=== PATIENT | female | born 1945 | race Caucasian/White ===

== ENCOUNTER 2018-03-24 22:52 | Inpatient (IN) | payer OTHER ==
[~2018-03-24] VITALS: Ht 160 cm; Wt 74.7 kg
[2018-03-25] VITALS (9 sets, daily range): BP systolic 129–164; BP diastolic 62–71; PULSE 51–64; RESP 18–19; Ht 160 cm; Wt 74.7 kg
[2018-03-25] MEDS ORDERED: AMLO2.5T78 PO (06:18)
[2018-03-25] MEDS ORDERED: SERT50TA6 PO (06:18)
[2018-03-25] MEDS ORDERED: METF850T13 PO (06:18)
[2018-03-25] MEDS ORDERED: TIMO5DRO30 RIGHT EYE (06:18)
[2018-03-25] MEDS ORDERED: LOSA100T15 PO (06:18)
[2018-03-25] MEDS ORDERED: ESOM40CA PO (06:18)
[2018-03-25] MEDS ORDERED: NACL 0.9% 3 ML SYG IV SCH (07:00)
[2018-03-25] MEDS ORDERED: ONDANSETRON 4 MG INJ IV PRN (07:00)
[2018-03-25] MEDS ORDERED: ACETAMINOPHEN 325 MG TAB PO PRN (07:00)
--- NOTE | 2018-03-25 09:09 | HP ---
Date/Time of Note Date/Time of Note DATE: 03/25/18 TIME: 09:02 Assessment/Plan VTE Prophylaxis SCD applied (from Ns): No SCD contraindicated: low risk/ambulating Pharmacological prophylaxis: heparin Assessment/Plan Problems: (1) CVA (cerebral vascular accident) Status: Chronic Comment: Her history is different for us and it was for the transferring facility. However this is mandatory as of aggressive evaluation to make sure what were dealing with here. She will be having carotid duplex scanning, MRI scan of the brain, echocardiogram. Further evaluation based on this. Aggressive risk factor modification for blood pressure and cholesterol as well and antiplatelet therapy. Physical therapy will start working with the patient. Qualifiers: CVA mechanism: unspecified Qualified Codes: I63.9 - Cerebral infarction, unspecified (2) Glaucoma Status: Chronic Comment: Continue with the eyedrops. Qualifiers: Glaucoma type: unspecified Laterality: right Qualified Codes: H40.9 - Unspecified glaucoma (3) Left-sided weakness Status: Chronic Comment: As above for workup. (4) Diabetes mellitus type 2 in nonobese Status: Chronic Comment: Maintain diabetic therapy and a carbohydrate controlled diet and follow to see if we need to adjust medication (5) Hypertension, essential Status: Chronic Comment: Continue with angiotensin II receptor olga lidia therapy with calcium channel olga lidia. Based on echocardiogram may adjust medications over the beta- olga lidia from calcium channel olga lidia as indicated Result Diagram: 03/25/18 0659 03/25/18 0659 Results 24hrs Laboratory Tests Test 03/25/18 06:59 White Blood Count 6.7 Red Blood Count 4.16 L Hemoglobin 12.1 Hematocrit 36.5 L Mean Corpuscular Volume 87.7 Mean Corpuscular Hemoglobin 29.1 Mean Corpuscular Hemoglobin Concent 33.2 Red Cell Distribution Width 12.4 Platelet Count 278 Mean Platelet Volume 9.4 Immature Granulocytes % 0.100 Neutrophils % 54.0 Lymphocytes % 26.6 Monocytes % 10.2 Eosinophils % 7.6 H Basophils % 1.5 Nucleated Red Blood Cells % 0.0 Immature Granulocytes # 0.010 Neutrophils # 3.6 Lymphocytes # 1.8 Monocytes # 0.7 Eosinophils # 0.5 Basophils # 0.1 Nucleated Red Blood Cells # 0.0 Sodium Level 139 Potassium Level 4.3 Chloride Level 98 Carbon Dioxide Level 30 Anion Gap 11 Blood Urea Nitrogen 10 Creatinine 0.81 Est Glomerular Filtrat Rate mL/min Glucose Level 98 Hemoglobin A1c 5.7 Calcium Level 10.0 Magnesium Level 1.8 Total Bilirubin 0.2 Direct Bilirubin 0.00 Indirect Bilirubin 0.2 Aspartate Amino Transf (AST/SGOT) 21 Alanine Aminotransferase (ALT/SGPT) 18 Alkaline Phosphatase 89 Total Protein 7.4 Albumin 4.0 Globulin 3.40 H Albumin/Globulin Ratio 1.17 Triglycerides Level 135 Cholesterol Level 216 H LDL Cholesterol, Calculated 157 HDL Cholesterol 32 L Cholesterol/HDL Ratio 6.7 Thyroid Stimulating Hormone (TSH) 1.910 HPI/ROS Admit Date/Time Admit Date/Time Mar 25, 2018 at 05:50 Hx of Present Illness 72-year-old right-handed [place] female admitted on transfer from [facility] emergency room. She was born in [facility] and raised there and had lived in [place] for some years but was living improved for the last 5 years. She moved to [facility] in the last 8 months and has been living he . She is just set up with a new physician in the last 3 months. She reports a 2-year history of left-sided weakness with a loss of coordination and falls x8 times. Reports there is been no acute changes but she presented to the emergency room at [facility] for evaluation. The history they got was of a 2-day history she was transferred over for TIA. Note the patient reports her symptoms are not resolving in my history is obtained with the assistance of the patient's granddaughter car PANTOJA Constitutional: no complaints (Denies fevers chills or sweats) Eyes: no complaints (History of glaucoma) ENT: no complaints Respiratory: no complaints Cardiovascular: no complaints (Patient reports she had an episode of chest pain a year ago and was seen by hospital improvement was advised to get further testing which was never done. She is not ambulatory for any specific length and is not using stairs.) Gastrointestinal: no complaints Genitourinary: no complaints Musculoskeletal: back pain, neck pain Skin: no complaints Neurologic: focal-weakness (Left-sided weakness unchanged from time) Endocrine: no complaints Lymphatic: no complaints PMH/Family/Social Past Medical History Medical History: diabetes (Type II), high cholesterol, hypertension, other (C hronic tinnitus; glaucoma;) Medications Current Medications IV Flush (NS 3 ml) 3 ml PER PROTOCOL IV ; Start 03/25/18 at 07:00 Ondansetron HCl (Zofran Inj) 4 mg Q6H PRN IV NAUSEA AND/OR VOMITING; Start 03/25/18 at 07:00 Aspirin (Aspirin) 81 mg DAILY PO ; Start 03/25/18 at 09:00 Acetaminophen (Tylenol Tab) 650 mg Q6H PRN PO PAIN LEVEL 1-3 OR FEVER; Start 03/25/18 at 07:00 Diagnostic Test (Pha) (Accu-Chek) 1 ea 2 HOURS AFTER MEALS XX ; Start 03/25/18 at 09:55 Insulin Aspart (Novolog Insulin Pen) NOVOLOG *MILD* ALGORITHM WITH MEALS BEDTIME SC ; Start 03/25/18 at 11:50 Atorvastatin Calcium (Lipitor) 20 mg HS PO ; Start 03/25/18 at 21:00 Amlodipine Besylate (Norvasc) 5 mg DAILY PO ; Start 03/25/18 at 09:00; Status UNV Losartan Potassium (Cozaar) 100 mg DAILY PO ; Start 03/25/18 at 09:00; Status UNV Metformin HCl (Glucophage) 850 mg BID PO ; Start 03/25/18 at 09:00; Status UNV Sertraline HCl (Zoloft) 50 mg DAILY PO ; Start 03/25/18 at 09:00; Status UNV Timolol Maleate (Timoptic 0.5%) 1 drop BID RIGHT EYE ; Start 03/25/18 at 09:00; Status UNV Miscellaneous Information 40 mg DAILY PO ; Start 03/25/18 at 09:00; Status UNV Coded Allergies: No Known Allergy (Unverified , 03/25/18) Past Surgical History Past Surgical Hx: appendectomy, cholecystectomy, other (S post cataract surg jose manuel; status post umbilical hernia repair;) Family History Significant Family History: diabetes, hypertension Social History Born in [place] and raised there. She and her family had lived in [place] for 22 years but moved back to [place] in 2012. She moved to [facility] roughly 8 months ago. She lives with her daughter Alcohol Use: none Smoking Status: Never smoker Drug Use: none Exam/Review of Systems Vital Signs Vitals Vital Signs Date Temp Pulse Resp B/P (MAP) Pulse Ox O2 O2 Flow FiO2 Time Delivery Rate 03/25/18 55 08:01 03/25/18 98.2 18 141/64 98 Room Air 07:19 (89) Exam Constitutional: alert, oriented Psych: no complaints, nl mood/affect Head: normocephalic, atraumatic Eyes: nl conjunctiva, EOMI, nl lids, nl sclera, PERRL ENMT: nl external ears & nose, nl lips & teeth, nl nasal mucosa & septum, mucosa pink and moist Neck: supple, non-tender Respiratory: clear to auscultation, normal air movement Cardiovascular: regular rate and rhythm, nl pulses Gastrointestinal: soft, nl liver, spleen, non-tender Musculoskeletal: nl extremities to inspection, other (Not ambulating at this moment) Extremities: normal pulses Neurological: 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
[2018-03-25] MEDS: ACCU-CHEK XX SCH ×3 (09:55→20:08)
[2018-03-25] MEDS: TIMOLOL 0.5% 5 ML OPH RIGHT EYE SCH ×2 (10:46→20:13)
[2018-03-25] MEDS: SERTRALINE 50 MG TAB PO SCH (10:46)
[2018-03-25] MEDS: ASPIRIN 81 MG TAB PO SCH (10:46)
[2018-03-25] MEDS: LOSARTAN 50 MG TAB PO SCH (10:47)
[2018-03-25] MEDS: AMLODIPINE 5 MG TAB PO SCH (10:47)
[2018-03-25] MEDS ORDERED: GLUCOSE GEL 15 GRAM TUBE BUCCAL PRN (11:00)
[2018-03-25] MEDS ORDERED: GLUCAGON 1 MG INJ IM PRN (11:00)
[2018-03-25] MEDS ORDERED: DEXTROSE 50% 50 ML SYRINGE IV PRN ×2 (11:00)
[2018-03-25] MEDS ORDERED: GLUCOSE GEL 15 GRAM TUBE PO PRN ×2 (11:00)
[2018-03-25] MEDS: INSULIN ASPART [NOVOLOG] 3 ML PEN SC SCH ×3 (11:50→20:10)
[2018-03-25] MEDS: PANTOPRAZOLE (EC) 40 MG TAB PO SCH (12:05)
[2018-03-25] MEDS: metFORMIN 850 MG TAB PO SCH ×2 (12:05→20:12)
--- NOTE | 2018-03-25 17:08 | RADRPT ---
Echocardiogram Report Patient Name: ROSE FLANAGAN Gender: Female Date: 1945 Study Date: 25-Mar-2018 Word Processing Operator: Location: Ref. Physician: RAKEL DA SILVA Quality: Adequate Procedures: Transthoracic echocardiogram with complete 2D, M-Mode, and doppler examination. Indications: Transient Ischemic Attack. 2D/M Mode Doppler Measurement Value Normal Ranges Measurement Value Normal Ranges LVIDd 2D 4.2 3.5 - 5.6 cm AV Peak Patricio 1.6 m/sec LVIDs 2D 3.0 2.1 - 4.1 cm AV Peak PG 10.0 mmHg FS 2D 30.4 % LVOT Peak Patricio 1.1 m/sec LVPWd 2D 1.1 0.6 - 1.1 cm LVOT Peak PG 5.0 mmHg IVSd 2D 1.1 0.6 - 1.1 cm MV E Peak Patricio 0.8 m/sec IVS/LVPW 2D 1.0 MV A Peak Patricio 1.1 m/sec AoR Diam 2D 2.5 2.0 - 3.7 cm MV E/A 0.8 LA/Ao 2D 1 0 - 1 MV Decel Time 204 msec EDV 2D 76.2 cm3 MV E/A 0.8 ESV 2D 25.7 cm3 TV E Peak Patricio 0.5 m/sec LA Dimen 2D 2.7 2.3 - 4.0 cm TR Peak Patricio 2.4 m/sec TR Peak PG 22.0 mmHg Findings Left Ventricle: Normal left ventricular systolic function. Normal left ventricular cavity size. Normal left ventricular wall thickness. Ejection fraction is visually estimated at 55 %. Tissue Doppler/Mitral Doppler indices are consistent with impaired relaxation (Stage I diastolic dysfunction). Right Ventricle: Normal right ventricular size. Normal right ventricular systolic function. Left Atrium: There is moderate enlargement of left atrium. Right Atrium: There is mild enlargement of right atrium. Atrial Septum: Bubble study was performed with and with out valsalva indicating no evidence of intra atrial shunt. Mitral Valve: Mild mitral leaflet calcification. Aortic Valve: Normal appearance of the aortic valve. No aortic regurgitation. Tricuspid Valve: Normal appearance of the tricuspid valve. Estimated peak PA systolic pressure 22 mmHg. There is trace tricuspid regurgitation. Pericardium: Normal pericardium with no significant pericardial effusion. Aorta: Normal aortic root. IVC: The IVC is not well visualized. Conclusions Normal left ventricular systolic function. Normal left ventricular cavity size. Normal left ventricular wall thickness. Ejection fraction is visually estimated at 55 %. Tissue Doppler/Mitral Doppler indices are consistent with impaired relaxation (Stage I diastolic dysfunction). Bubble study was performed with and with out valsalva indicating no evidence of intra atrial shunt. No significant valvular stenosis or regurgitation seen. Estimated peak PA systolic pressure 22 mmHg. The IVC is not well visualized. Electronically Signed By: Aldo Ngo 25-Mar-2018 17:06:58 -0800 Patient Name: ROSE FLANAGAN Study Date: 25-Mar-2018 [id number]
[2018-03-25] MEDS: ATORVASTATIN 20 MG TAB PO SCH (20:12)
[2018-03-26] VITALS (12 sets, daily range): BP systolic 130–159; BP diastolic 62–74; PULSE 53–63; RESP 18
[2018-03-26] MEDS: PANTOPRAZOLE (EC) 40 MG TAB PO SCH (05:14)
[2018-03-26] MEDS: INSULIN ASPART [NOVOLOG] 3 ML PEN SC SCH ×4 (07:55→20:08)
[2018-03-26] MEDS: SERTRALINE 50 MG TAB PO SCH (08:14)
[2018-03-26] MEDS: ASPIRIN 81 MG TAB PO SCH (08:14)
[2018-03-26] MEDS: metFORMIN 850 MG TAB PO SCH ×2 (08:14→20:09)
[2018-03-26] MEDS: LOSARTAN 50 MG TAB PO SCH (08:15)
[2018-03-26] MEDS: AMLODIPINE 5 MG TAB PO SCH (08:15)
[2018-03-26] MEDS: TIMOLOL 0.5% 5 ML OPH RIGHT EYE SCH ×2 (08:19→20:09)
--- NOTE | 2018-03-26 08:43 | PN ---
Date/Time of Note Date/Time of Note DATE: 03/26/18 TIME: 08:37 Assessment/Plan VTE Prophylaxis Risk score (from Ns)>0 risk: 3 SCD applied (from Ns): Yes Pharmacological prophylaxis: heparin Lines/Catheters IV [facility] Peripheral IV Assessment/Plan Problems: (1) Left-sided weakness Status: Chronic Comment: Her workup fortunately is unrevealing. However given the additional details she gets with her history is possible she could have cervical spine stenosis. And then go ahead and do an imaging study of the cervical spine to verify or rule this out more specifically. The rest of the workup after this can be done as an outpatient. (2) CVA (cerebral vascular accident) Status: Chronic Comment: No evidence of acute CVA although she does have some remote small white matter disease. Qualifiers: CVA mechanism: unspecified Qualified Codes: I63.9 - Cerebral infarction, unspecified (3) Hypertension, essential Status: Chronic Comment: Adequate control (4) Grade I diastolic dysfunction Status: Chronic Comment: Controlled with control of blood pressure. Add low-dose beta-olga lidia (5) Benign meningioma of brain Status: Chronic Comment: Noted. (6) Diabetes mellitus type 2 in nonobese Status: Chronic Comment: Adequate glycemic control (7) Glaucoma Status: Chronic Comment: Maintain medication treatment Qualifiers: Glaucoma type: unspecified Laterality: right Qualified Codes: H40.9 - Unspecified glaucoma (8) Status post cholecystectomy Status: Chronic Comment: She has had her gallbladder out but she is complaining about some abdominal symptoms. To be thorough I will check an ultrasound to make sure that she does not have retained common bile duct stone. Result Diagram: 03/26/18 0532 03/26/18 0532 Results 24hrs Laboratory Tests Test 03/25/18 10:27 03/25/18 12:00 03/25/18 17:36 03/25/18 20:09 Rapid Plasma Reagin NONREACTIVE Hepatitis B Surface NEGATIVE Antigen Hepatitis C Antibody NEGATIVE Bedside Glucose 102 89 99 Test 03/26/18 05:32 03/26/18 08:12 White Blood Count 5.5 Red Blood Count 4.04 L Hemoglobin 11.7 L Hematocrit 34.9 L Mean Corpuscular 86.4 Volume Mean Corpuscular 29.0 Hemoglobin Mean Corpuscular 33.5 Hemoglobin Concent Red Cell 12.5 Distribution Width Platelet Count 278 Mean Platelet Volume 9.1 Immature 0.200 Granulocytes % Neutrophils % 46.7 Lymphocytes % 32.1 Monocytes % 11.0 Eosinophils % 8.4 H Basophils % 1.6 Nucleated Red Blood 0.0 Cells % Immature 0.010 Granulocytes # Neutrophils # 2.6 Lymphocytes # 1.8 Monocytes # 0.6 Eosinophils # 0.5 Basophils # 0.1 Nucleated Red Blood 0.0 Cells # Erythrocyte 40 H Sedimentation Rate Sodium Level 140 Potassium Level 4.2 Chloride Level 103 Carbon Dioxide Level 25 Anion Gap 12 Blood Urea Nitrogen 14 Creatinine 0.91 Est Glomerular Filtrat Rate mL/min Glucose Level 111 Calcium Level 9.8 Magnesium Level 1.8 Total Bilirubin 0.1 L Direct Bilirubin 0.00 Indirect Bilirubin 0.1 Aspartate Amino 19 Transf (AST/SGOT) Alanine 16 Aminotransferase (AL T/SGPT) Alkaline Phosphatase 89 Total Protein 7.0 Albumin 3.7 Globulin 3.30 H Albumin/Globulin 1.12 Ratio Bedside Glucose 104 Subjective 24 Hr Interval Summary Free Text/Dictation Patient reports some new issues for her. Specifically she is complaining about bilateral shoulder pain that she had not mentioned yesterday and some abdominal pain. These have been going on for quite some period of time. Constitutional: no complaints (No fevers chills or sweats) Respiratory: no complaints (Cough no wheezing no shortness of breath) Cardiovascular: no complaints (Chest pain no palpitations no PND no orthopnea) Gastrointestinal: pain (Vague epigastric pain without nausea vomiting diarrhea or constipation) Genitourinary: no complaints Musculoskeletal: back pain, neck pain Skin: no complaints Exam/Review of Systems Vital Signs Vitals Vital Signs Date Temp Pulse Resp B/P (MAP) Pulse Ox O2 O2 Flow FiO2 Time Delivery Rate 03/26/18 57 08:01 03/26/18 98.5 18 158/70 95 Room Air 07:30 (99) Intake and Output 03/25/18 03/25/18 03/26/18 1515:00 23:00 07:00 IntakeIntake Total 800 ml 450 ml BalanceBalance 800 ml 450 ml Exam Modestly challenging historian with a variable history who appears to be in minimal distress Constitutional: alert, oriented Head: normocephalic, atraumatic Neck: non-tender, other (Somewhat tender with range of motion but not meningismus) Respiratory: clear to auscultation, normal air movement Cardiovascular: regular rate and rhythm, nl pulses Gastrointestinal: soft, nl liver, spleen, non-tender Extremities: normal pulses 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, nl mental status, nl speech Medications Medications Current Medications IV Flush (NS 3 ml) 3 ml PER PROTOCOL IV ; Start 03/25/18 at 07:00 Ondansetron HCl (Zofran Inj) 4 mg Q6H PRN IV NAUSEA AND/OR VOMITING; Start 03/25/18 at 07:00 Aspirin (Aspirin) 81 mg DAILY PO Last administered on 03/26/18 08:14; Admin Dose 81 MG; Start 03/25/18 at 09:00 Acetaminophen (Tylenol Tab) 650 mg Q6H PRN PO PAIN LEVEL 1-3 OR FEVER Last administered on 03/26/18 08:14; Admin Dose 650 MG; Start 03/25/18 at 07:00 Diagnostic Test (Pha) (Accu-Chek) 1 ea 2 HOURS AFTER MEALS XX Last administered on 03/25/18 20:08; Admin Dose 1 EA; Start 03/25/18 at 09:55 Insulin Aspart (Novolog Insulin Pen) NOVOLOG *MILD* ALGORITHM WITH MEALS BEDTIME SC ; Start 03/25/18 at 11:50 Atorvastatin Calcium (Lipitor) 20 mg HS PO Last administered on 03/25/18 20:12; Admin Dose 20 MG; Start 03/25/18 at 21:00 Amlodipine Besylate (Norvasc) 5 mg DAILY PO Last administered on 03/26/18 08:15; Admin Dose 5 MG; Start 03/25/18 at 09:00 Losartan Potassium (Cozaar) 100 mg DAILY PO Last administered on 03/26/18 08:15; Admin Dose 100 MG; Start 03/25/18 at 09:00 Metformin HCl (Glucophage) 850 mg BID PO Last administered on 03/26/18 08:14; Admin Dose 850 MG; Start 03/25/18 at 09:00 Sertraline HCl (Zoloft) 50 mg DAILY PO Last administered on 03/26/18 08:14; Admin Dose 50 MG; Start 03/25/18 at 09:00 Timolol Maleate (Timoptic 0.5%) 1 drop BID RIGHT EYE Last administered on 03/26/18 08:19; Admin Dose 1 DROP; Start 03/25/18 at 09:00 Pantoprazole (Protonix Tab) 40 mg DAILY@06 PO Last administered on 03/26/18at 05 :14; Admin Dose 40 MG; Start 03/25/18 at 09:20 Miscellaneous Information 1 ea NOTE XX ; Start 03/25/18 at 11:00 Glucose (Glutose) 15 gm Q15M PRN PO DECREASED GLUCOSE; Start 03/25/18 at 11:00 Glucose (Glutose) 22.5 gm Q15M PRN PO DECREASED GLUCOSE; Start 03/25/18 at 11:00 Dextrose (D50w Syringe) 25 ml Q15M PRN IV DECREASED GLUCOSE; Start 03/25/18 at 11:00 Dextrose (D50w Syringe) 50 ml Q15M PRN IV DECREASED GLUCOSE; Start 03/25/18 at 11:00 Glucagon (Glucagen) 1 mg Q15M PRN IM DECREASED GLUCOSE; Start 03/25/18 at 11:00 Glucose (Glutose) 15 gm Q15M PRN BUCCAL DECREASED GLUCOSE; Start 03/25/18 at 11:00 MEKA DE LA O MD Mar 26, 2018 08:43
[2018-03-26] MEDS: METOPROLOL (XL) 25 MG TAB PO SCH (09:23)
[2018-03-26] MEDS: ACCU-CHEK XX SCH ×3 (09:55→20:08)
[2018-03-26] MEDS: CELECOXIB 100 MG CAP PO SCH ×2 (17:34→20:09)
[2018-03-26] MEDS: ATORVASTATIN 20 MG TAB PO SCH (20:09)
[2018-03-27] VITALS (11 sets, daily range): BP systolic 134–145; BP diastolic 65; PULSE 51–63; RESP 16–22
[2018-03-27] MEDS: PANTOPRAZOLE (EC) 40 MG TAB PO SCH (05:48)
[2018-03-27] MEDS: INSULIN ASPART [NOVOLOG] 3 ML PEN SC SCH ×4 (07:42→20:40)
[2018-03-27] MEDS: SERTRALINE 50 MG TAB PO SCH (08:51)
[2018-03-27] MEDS: ASPIRIN 81 MG TAB PO SCH (08:51)
[2018-03-27] MEDS: metFORMIN 850 MG TAB PO SCH ×2 (08:51→20:38)
[2018-03-27] MEDS: METOPROLOL (XL) 25 MG TAB PO SCH (08:53)
[2018-03-27] MEDS: AMLODIPINE 5 MG TAB PO SCH ×2 (08:53→20:39)
[2018-03-27] MEDS: TIMOLOL 0.5% 5 ML OPH RIGHT EYE SCH ×2 (08:54→20:40)
[2018-03-27] MEDS: CELECOXIB 100 MG CAP PO SCH ×2 (08:54→20:39)
[2018-03-27] MEDS: LOSARTAN 50 MG TAB PO SCH (08:54)
[2018-03-27] MEDS: ACCU-CHEK XX SCH ×3 (10:00→20:39)
--- NOTE | 2018-03-27 13:20 | PN ---
Date/Time of Note Date/Time of Note DATE: 03/27/18 TIME: 13:12 Assessment/Plan VTE Prophylaxis Risk score (from Ns)>0 risk: 3 SCD applied (from Ns): Yes Pharmacological prophylaxis: NA/contraindicated Pharm contraindication: low risk/ambulating Lines/Catheters IV Catheter Type (from Nrsg): Saline Lock Assessment/Plan Assessment/Plan 1. Left sided weakness, improved, unremarkable MRI brain, probably TIA, aspirin and statin 2. Both shoulder weakness, awaiting for cervical spinal MRI 3. HTN, increase norvasc 4. Small meningioma over the anterior left frontal convexity, 9 x 6 mm, follow up with PCP 5. Glaucoma, chronic, stable, eye drops Result Diagram: 03/26/18 0532 03/26/18 0532 Results 24hrs Laboratory Tests Test 03/26/18 17:33 03/26/18 20:08 03/27/18 07:41 03/27/18 09:58 Bedside Glucose 112 113 95 149 Test 03/27/18 11:32 Bedside Glucose 98 Subjective 24 Hr Interval Summary Free Text/Dictation shoulder weakness both side, mild. No weakness on lower extremities Exam/Review of Systems Vital Signs Vitals Vital Signs Date Temp Pulse Resp B/P (MAP) Pulse Ox O2 O2 Flow FiO2 Time Delivery Rate 03/27/18 98.5 51 17 134/65 95 Room Air 11:19 (88) Intake and Output 03/26/18 03/26/18 03/27/18 1515:00 23:00 07:00 IntakeIntake Total 500 ml BalanceBalance 500 ml Exam Constitutional: alert, oriented, well developed Head: normocephalic, atraumatic Eyes: nl conjunctiva, EOMI, nl lids, nl sclera, PERRL ENMT: nl external ears & nose, nl lips & teeth, nl nasal mucosa & septum Neck: supple, non-tender Respiratory: clear to auscultation, normal air movement; No congested cough, No crackles/rales, No diminished breath sounds, No intercostal retraction, No labored breathing, No respirations, No tactile fremitus, No wheezing, No other Cardiovascular: regular rate and rhythm, nl pulses; No bruits, No diastolic murmur, No edema, No gallop, No irregular rhythm, No jugular venous distention (JVD), No murmurs/extra sounds, No rub, No systolic murmur, No S3, No S4, No other Gastrointestinal: soft, nl liver, spleen, non-tender Musculoskeletal: nl extremities to inspection Extremities: normal pulses; No calf tenderness, No cyanosis, No clubbing, No edema, No pitting pedal edema, No palpable cord, No tenderness, No other 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, nl mental status, nl speech, nl strength Medications Medications Current Medications IV Flush (NS 3 ml) 3 ml PER PROTOCOL IV ; Start 03/25/18 at 07:00 Ondansetron HCl (Zofran Inj) 4 mg Q6H PRN IV NAUSEA AND/OR VOMITING; Start 03/25/18 at 07:00 Aspirin (Aspirin) 81 mg DAILY PO Last administered on 03/27/18 08:51; Admin Dose 81 MG; Start 03/25/18 at 09:00 Acetaminophen (Tylenol Tab) 650 mg Q6H PRN PO PAIN LEVEL 1-3 OR FEVER Last administered on 03/26/18 08:14; Admin Dose 650 MG; Start 03/25/18 at 07:00 Diagnostic Test (Pha) (Accu-Chek) 1 ea 2 HOURS AFTER MEALS XX Last administ ered on 03/27/18 10:00; Admin Dose 1 EA; Start 03/25/18 at 09:55 Insulin Aspart (Novolog Insulin Pen) NOVOLOG *MILD* ALGORITHM WITH MEALS BEDTIME SC ; Start 03/25/18 at 11:50 Atorvastatin Calcium (Lipitor) 20 mg HS PO Last administered on 03/26/18 20:09; Admin Dose 20 MG; Start 03/25/18 at 21:00 Amlodipine Besylate (Norvasc) 5 mg DAILY PO Last administered on 03/27/18 08:53; Admin Dose 5 MG; Start 03/25/18 at 09:00 Losartan Potassium (Cozaar) 100 mg DAILY PO Last administered on 03/27/18 08:54; Admin Dose 100 MG; Start 03/25/18 at 09:00 Metformin HCl (Glucophage) 850 mg BID PO Last administered on 03/27/18 08:51; Admin Dose 850 MG; Start 03/25/18 at 09:00 Sertraline HCl (Zoloft) 50 mg DAILY PO Last administered on 1/14/19at 08:51; Admin Dose 50 MG; Start 03/25/18 at 09:00 Timolol Maleate (Timoptic 0.5%) 1 drop BID RIGHT EYE Last administered on 03/27/18at 08:54; Admin Dose 1 DROP; Start 03/25/18 at 09:00 Pantoprazole (Protonix Tab) 40 mg DAILY@06 PO Last administered on 03/26/18at 05:14; Admin Dose 40 MG; Start 03/25/18 at 09:20 Miscellaneous Information 1 ea NOTE XX ; Start 03/25/18 at 11:00 Glucose (Glutose) 15 gm Q15M PRN PO DECREASED GLUCOSE; Start 03/25/18 at 11:00 Glucose (Glutose) 22.5 gm Q15M PRN PO DECREASED GLUCOSE; Start 03/25/18 at 11:00 Dextrose (D50w Syringe) 25 ml Q15M PRN IV DECREASED GLUCOSE; Start 03/25/18 at 11:00 Dextrose (D50w Syringe) 50 ml Q15M PRN IV DECREASED GLUCOSE; Start 03/25/18 at 11:00 Glucagon (Glucagen) 1 mg Q15M PRN IM DECREASED GLUCOSE; Start 03/25/18 at 11:00 Glucose (Glutose) 15 gm Q15M PRN BUCCAL DECREASED GLUCOSE; Start 03/25/18 at 11:00 Metoprolol Succinate (Toprol Xl) 25 mg DAILY PO Last administered on 03/26/18at 09:23; Admin Dose 25 MG; Start 03/26/18 at 09:00 Celecoxib (Celebrex) 100 mg BID PO Last administered on 03/27/18at 08:54; Admin Dose 100 MG; Start 03/26/18 at 13:00 CHEYENNE FOSS MD Mar 27, 2018 13:20
[2018-03-27] MEDS: ATORVASTATIN 20 MG TAB PO SCH (20:38)
[2018-03-28] VITALS (10 sets, daily range): BP systolic 117–158; BP diastolic 58–73; PULSE 48–61; RESP 16–22
[2018-03-28] MEDS: PANTOPRAZOLE (EC) 40 MG TAB PO SCH (06:52)
[2018-03-28] MEDS: INSULIN ASPART [NOVOLOG] 3 ML PEN SC SCH ×4 (07:56→20:33)
[2018-03-28] MEDS: CELECOXIB 100 MG CAP PO SCH ×2 (08:10→20:34)
[2018-03-28] MEDS: AMLODIPINE 5 MG TAB PO SCH ×2 (08:10→20:35)
[2018-03-28] MEDS: ASPIRIN 81 MG TAB PO SCH (08:10)
[2018-03-28] MEDS: LOSARTAN 50 MG TAB PO SCH (08:11)
[2018-03-28] MEDS: METOPROLOL (XL) 25 MG TAB PO SCH (08:11)
[2018-03-28] MEDS: SERTRALINE 50 MG TAB PO SCH (08:11)
[2018-03-28] MEDS: TIMOLOL 0.5% 5 ML OPH RIGHT EYE SCH ×2 (08:12→20:35)
[2018-03-28] MEDS: metFORMIN 850 MG TAB PO SCH ×2 (08:12→20:34)
[2018-03-28] MEDS: ACCU-CHEK XX SCH (10:50)
--- NOTE | 2018-03-28 15:33 | PN ---
Date/Time of Note Date/Time of Note DATE: 03/28/18 TIME: 15:29 Assessment/Plan VTE Prophylaxis Risk score (from Ns)>0 risk: 3 SCD applied (from Ns): Yes Pharmacological prophylaxis: NA/contraindicated Pharm contraindication: low risk/ambulating Lines/Catheters IV [facility]from [facility] Assessment/Plan Assessment/Plan 1. Severe cervical spinal disc disease, with shoulder weakness, neurosurgical consultation with Dr. Lockhart(sent text) 1. Left sided weakness, improved, unremarkable MRI brain, probably TIA, aspirin and statin 2. Both shoulder weakness, awaiting for cervical spinal MRI 3. HTN, increase norvasc 4. Small meningioma over the anterior left frontal convexity, 9 x 6 mm, follow up with PCP 5. Glaucoma, chronic, stable, eye drops Result Diagram: 03/26/18 0532 03/26/18 0532 Results 24hrs Laboratory Tests Test 03/27/18 17:20 03/27/18 20:35 03/28/18 07:52 03/28/18 10:20 Bedside Glucose 84 173 152 98 Test 03/28/18 12:08 Bedside Glucose 91 Subjective 24 Hr Interval Summary Free Text/Dictation less weakness on shoulders Exam/Review of Systems Vital Signs Vitals Vital Signs Date Temp Pulse Resp B/P (MAP) Pulse Ox O2 O2 Flow FiO2 Time Delivery Rate 03/28/18 98.0 55 21 117/58 96 Room Air 12:08 (77) Intake and Output 03/27/18 03/27/18 03/28/18 1515:00 23:00 07:00 IntakeIntake Total 500 ml 720 ml 500 ml BalanceBalance 500 ml 720 ml 500 ml Exam Constitutional: alert, oriented, well developed Psych: no complaints, nl mood/affect Head: normocephalic, atraumatic Eyes: nl conjunctiva, EOMI, nl lids, PERRL ENMT: nl external ears & nose, nl lips & teeth, nl nasal mucosa & septum Neck: supple, non-tender Respiratory: clear to auscultation, normal air movement; No congested cough, No crackles/rales, No diminished breath sounds, No intercostal retraction, No labored breathing, No respirations, No tactile fremitus, No wheezing, No other Cardiovascular: regular rate and rhythm, nl pulses; No bruits, No diastolic murmur, No edema, No gallop, No irregular rhythm, No jugular venous distention (JVD), No murmurs/extra sounds, No rub, No systolic murmur, No S3, No S4, No other Gastrointestinal: soft, nl liver, spleen, non-tender Musculoskeletal: nl extremities to inspection Extremities: normal pulses; No calf tenderness, No cyanosis, No clubbing, No edema, No pitting pedal edema, No palpable cord, No tenderness, No other Neurological: CREW CLERK II-XII intact, nl mental status, nl speech, nl strength Skin: nl turgor Medications Medications Current Medications IV Flush (NS 3 ml) 3 ml PER PROTOCOL IV ; Start 03/25/18 at 07:00 Ondansetron HCl (Zofran Inj) 4 mg Q6H PRN IV NAUSEA AND/OR VOMITING; Start 03/25/18 at 07:00 Aspirin (Aspirin) 81 mg DAILY PO Last administered on 03/28/18 08:10; Admin Dose 81 MG; Start 03/25/18 at 09:00 Acetaminophen (Tylenol Tab) 650 mg Q6H PRN PO PAIN LEVEL 1-3 OR FEVER Last administered on 03/26/18 08:14; Admin Dose 650 MG; Start 03/25/18 at 07:00 Insulin Aspart (Novolog Insulin Pen) NOVOLOG *MILD* ALGORITHM WITH MEALS BEDTIME SC Last administered on 03/28/18 07:56; Admin Dose 1 UNIT; Start 03/25/18 at 11:50 Atorvastatin Calcium (Lipitor) 20 mg HS PO Last administered on 03/27/18 20:38; Admin Dose 20 MG; Start 03/25/18 at 21:00 Losartan Potassium (Cozaar) 100 mg DAILY PO Last administered on 03/28/18 08:11; Admin Dose 100 MG; Start 03/25/18 at 09:00 Metformin HCl (Glucophage) 850 mg BID PO Last administered on 03/28/18 08:12; Admin Dose 850 MG; Start 03/25/18 at 09:00 Sertraline HCl (Zoloft) 50 mg DAILY PO Last administered on 03/28/18 08:11; Admin Dose 50 MG; Start 03/25/18 at 09:00 Timolol Maleate (Timoptic 0.5%) 1 drop BID RIGHT EYE Last administered on 03/28/18at 08:12; Admin Dose 1 DROP; Start 03/25/18 at 09:00 Pantoprazole (Protonix Tab) 40 mg DAILY@06 PO Last administered on 03/28/18at 06:52; Admin Dose 40 MG; Start 03/25/18 at 09:20 Miscellaneous Information 1 ea NOTE XX ; Start 03/25/18 at 11:00 Glucose (Glutose) 15 gm Q15M PRN PO DECREASED GLUCOSE; Start 03/25/18 at 11:00 Glucose (Glutose) 22.5 gm Q15M PRN PO DECREASED GLUCOSE; Start 03/25/18 at 11:00 Dextrose (D50w Syringe) 25 ml Q15M PRN IV DECREASED GLUCOSE; Start 03/25/18 at 11:00 Dextrose (D50w Syringe) 50 ml Q15M PRN IV DECREASED GLUCOSE Last administered on 03/28/18at 07:37; Admin Dose 50 ML; Start 03/25/18 at 11:00 Glucagon (Glucagen) 1 mg Q15M PRN IM DECREASED GLUCOSE; Start 03/25/18 at 11:00 Glucose (Glutose) 15 gm Q15M PRN BUCCAL DECREASED GLUCOSE; Start 03/25/18 at 11:00 Metoprolol Succinate (Toprol Xl) 25 mg DAILY PO Last administered on 03/28/18at 08:11; Admin Dose 25 MG; Start 03/26/18 at 09:00 Celecoxib (Celebrex) 100 mg BID PO Last administered on 03/28/18at 08:10; Admin Dose 100 MG; Start 03/26/18 at 13:00 Amlodipine Besylate (Norvasc) 5 mg BID PO Last administered on 03/28/18at 08:10; Admin Dose 5 MG; Start 03/27/18 at 21:00 CHEYENNE FOSS MD Mar 28, 2018 15:33
[2018-03-28] MEDS: ATORVASTATIN 20 MG TAB PO SCH (20:34)
--- NOTE | 2018-03-28 20:53 | CONS ---
Date/Time of Note Date/Time of Note DATE: 03/28/18 TIME: 20:47 Assessment/Plan Assessment/Plan Assessment/Plan 72 year old female with degenerative cervical stenosis (central and foraminal) with evidence of chronic instability (ie retrolisthesis and Modic changes) without myelopathy or acute radiculopathy. I recommend she follow up with me as an outpatient for further evaluation. No surgical intervention is indicated at the present time. Result Diagram: 03/26/18 0532 03/26/18 0532 Results 24hrs Laboratory Tests Test 03/28/18 07:52 03/28/18 10:20 03/28/18 12:08 03/28/18 17:25 Bedside Glucose 152 98 91 152 Test 03/28/18 20:32 Bedside Glucose 107 Consultation Date/Type/Reason Admit Date/Time Mar 25, 2018 at 05:50 Date of Consultation: Mar 28, 2018 Type of Consult neurosurgery Reason for Consultation cervical stenosis Hx of Present Illness 72 year old female with multiple medical problems including hypertension, hx of CVA, glaucoma, complains of bilateral shoulder pain and weakness. MRI shows cervical stenosis secondary to calcified ligamentum flavum, small retrolisthesis and foraminal stenosis affecting C6 nerve root bilaterally. There is no cord signal change or other sign of cord contusion, etc. MRI: C2-C3 : There is a 1 mm circumferential disc osteophyte complex without spinal canal stenosis. There is mild by facet arthropathy and bilateral uncovertebral hypertrophy causing moderate left without right foraminal stenosis. C3-C4 : There is a 2 mm circumferential disc osteophyte complex without spinal canal stenosis. There is moderate left and moderate facet arthropathy and bilateral uncovertebral hypertrophy causing moderate to severe left without right foraminal stenosis. This likely affects the exiting left C4 nerve root. C4-C5 : There is a 2 mm circumferential disc osteophyte complex with mild to moderate spinal canal stenosis. There is moderate left and moderate facet arthropathy and bilateral uncovertebral hypertrophy causing mild bilateral foraminal stenosis. C5-C6 : There is moderate disc space narrowing. There is trace retrolisthesis with a circumferential disc osteophyte complex mildly indenting the spinal cord with moderate spinal canal stenosis. There is moderate bilateral facet arthropathy and bilateral uncovertebral hypertrophy causing severe left with moderate right foraminal stenosis. This affects the exiting left C6 nerve root. C6-C7 : There is a 2 mm broad-based disc osteophyte complex with mild to moderate spinal canal stenosis. There is moderate by facet arthropathy and bilateral uncovertebral hypertrophy causing mild to moderate right without left foraminal stenosis. C7-T1 : There is a 2 mm circumferential disc osteophyte complex without spinal canal stenosis. There is moderate facet arthropathy and bilateral uncovertebral hypertrophy causing mild to moderate bilateral foraminal stenosis. The paravertebral musculature are within normal limits. There is a 5 mm left thyroid nodule. IMPRESSION: 1. Multilevel bilateral foraminal stenosis affecting the exiting left C4 and C6 nerve roots as detailed above. 2. Multilevel spinal canal stenosis most pronounced at C5-C6 where there is trace retrolisthesis mildly indenting the spinal cord with moderate spinal canal stenosis. Past Medical History Medical History: diabetes (Type II), high cholesterol, hypertension, other (Chronic tinnitus; glaucoma;) Medications Current Medications IV Flush (NS 3 ml) 3 ml PER PROTOCOL IV ; Start 03/25/18 at 07:00 Ondansetron HCl (Zofran Inj) 4 mg Q6H PRN IV NAUSEA AND/OR VOMITING; Start 03/25/18 at 07:00 Aspirin (Aspirin) 81 mg DAILY PO Last administered on 03/28/18 08:10; Admin Dose 81 MG; Start 03/25/18 at 09:00 Acetaminophen (Tylenol Tab) 650 mg Q6H PRN PO PAIN LEVEL 1-3 OR FEVER Last administered on 03/26/18 08:14; Admin Dose 650 MG; Start 03/25/18 at 07:00 Insulin Aspart (Novolog Insulin Pen) NOVOLOG *MILD* ALGORITHM WITH MEALS BEDTIME SC Last administered on 03/28/18at 17:31; Admin Dose 1 UNIT; Start 03/25/18 at 11:50 Atorvastatin Calcium (Lipitor) 20 mg HS PO Last administered on 03/28/18 20:34; Admin Dose 20 MG; Start 03/25/18 at 21:00 Losartan Potassium (Cozaar) 100 mg DAILY PO Last administered on 03/28/18 08:11; Admin Dose 100 MG; Start 03/25/18 at 09:00 Metformin HCl (Glucophage) 850 mg BID PO Last administered on 03/28/18 20:34; Admin Dose 850 MG; Start 03/25/18 at 09:00 Sertraline HCl (Zoloft) 50 mg DAILY PO Last administered on 03/28/18at 08:11; Admin Dose 50 MG; Start 03/25/18 at 09:00 Timolol Maleate (Timoptic 0.5%) 1 drop BID RIGHT EYE Last administered on 03/28/18at 20:35; Admin Dose 1 DROP; Start 03/25/18 at 09:00 Pantoprazole (Protonix Tab) 40 mg DAILY@06 PO Last administered on 03/28/18at 06:52; Admin Dose 40 MG; Start 03/25/18 at 09:20 Miscellaneous Information 1 ea NOTE XX ; Start 03/25/18 at 11:00 Glucose (Glutose) 15 gm Q15M PRN PO DECREASED GLUCOSE; Start 03/25/18 at 11:00 Glucose (Glutose) 22.5 gm Q15M PRN PO DECREASED GLUCOSE; Start 03/25/18 at 11:00 Dextrose (D50w Syringe) 25 ml Q15M PRN IV DECREASED GLUCOSE; Start 03/25/18 at 11:00 Dextrose (D50w Syringe) 50 ml Q15M PRN IV DECREASED GLUCOSE Last administered on 03/28/18at 07:37; Admin Dose 50 ML; Start 03/25/18 at 11:00 Glucagon (Glucagen) 1 mg Q15M PRN IM DECREASED GLUCOSE; Start 03/25/18 at 11:00 Glucose (Glutose) 15 gm Q15M PRN BUCCAL DECREASED GLUCOSE; Start 03/25/18 at 11:00 Metoprolol Succinate (Toprol Xl) 25 mg DAILY PO Last administered on 03/28/18at 08:11; Admin Dose 25 MG; Start 03/26/18 at 09:00 Celecoxib (Celebrex) 100 mg BID PO Last administered on 03/28/18at 20:34; Admin Dose 100 MG; Start 03/26/18 at 13:00 Amlodipine Besylate (Norvasc) 5 mg BID PO Last administered on 03/28/18 20:35; Admin Dose 5 MG; Start 03/27/18 at 21:00 Allergies: Coded Allergies: No Known Allergy (Unverified , 03/25/18) Past Surgical History Past Surgical Hx: appendectomy, cholecystectomy, other (S post cataract surgery; status post umbilical hernia repair;) Social History Alcohol Use: none Smoking Status: Never smoker Drug Use: none Exam/Review of Systems Vital Signs Vitals Vital Signs Date Temp Pulse Resp B/P (MAP) Pulse Ox O2 O2 Flow FiO2 Time Delivery Rate 03/28/18 98.1 50 19 153/70 98 20:00 (97) 03/28/18 Room Air 15:33 Intake and Output 03/27/18 03/27/18 03/28/18 1414:59 22:59 06:59 IntakeIntake Total 500 ml 720 ml 500 ml BalanceBalance 500 ml 720 ml 500 ml Exam Deltoid/ biceps/ triceps/ shift supervisor melting strength 4+/5 bilaterally (effort related?) No Hoffmans, no clonus, DTRs 1-2+ bilaterally Constitutional: alert, oriented, well developed Psych: no complaints, nl mood/affect Head: normocephalic, atraumatic Eyes: nl conjunctiva, EOMI, nl lids ENMT: nl external ears & nose, nl lips & teeth Neck: non-tender Musculoskeletal: nl extremities to inspection Neurological: 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 OFFBEARER II-XII intact, nl mental status, nl speech Medications Medications Current Medications IV Flush (NS 3 ml) 3 ml PER PROTOCOL IV ; Start 03/25/18 at 07:00 Ondansetron HCl (Zofran Inj) 4 mg Q6H PRN IV NAUSEA AND/OR VOMITING; Start 03/25/18 at 07:00 Aspirin (Aspirin) 81 mg DAILY PO Last administered on 03/28/18at 08:10; Admin Dose 81 MG; Start 03/25/18 at 09:00 Acetaminophen (Tylenol Tab) 650 mg Q6H PRN PO PAIN LEVEL 1-3 OR FEVER Last administered on 03/26/18at 08:14; Admin Dose 650 MG; Start 03/25/18 at 07:00 Insulin Aspart (Novolog Insulin Pen) NOVOLOG *MILD* ALGORITHM WITH MEALS BEDTIME SC Last administered on 03/28/18at 17:31; Admin Dose 1 UNIT; Start 03/25/18 at 11:50 Atorvastatin Calcium (Lipitor) 20 mg HS PO Last administered on 03/28/18at 20:34; Admin Dose 20 MG; Start 03/25/18 at 21:00 Losartan Potassium (Cozaar) 100 mg DAILY PO Last administered on 03/28/18at 08:11; Admin Dose 100 MG; Start 03/25/18 at 09:00 Metformin HCl (Glucophage) 850 mg BID PO Last administered on 03/28/18 20:34; Admin Dose 850 MG; Start 03/25/18 at 09:00 Sertraline HCl (Zoloft) 50 mg DAILY PO Last administered on 03/28/18at 08:11; Admin Dose 50 MG; Start 03/25/18 at 09:00 Timolol Maleate (Timoptic 0.5%) 1 drop BID RIGHT EYE Last administered on at 20:35; Admin Dose 1 DROP; Start 03/25/18 at 09:00 Pantoprazole (Protonix Tab) 40 mg DAILY@06 PO Last administered on 03/28/18at 06:52; Admin Dose 40 MG; Start 03/25/18 at 09:20 Miscellaneous Information 1 ea NOTE XX ; Start 03/25/18 at 11:00 Glucose (Glutose) 15 gm Q15M PRN PO DECREASED GLUCOSE; Start 03/25/18 at 11:00 Glucose (Glutose) 22.5 gm Q15M PRN PO DECREASED GLUCOSE; Start 03/25/18 at 11:00 Dextrose (D50w Syringe) 25 ml Q15M PRN IV DECREASED GLUCOSE; Start 03/25/18 at 11:00 Dextrose (D50w Syringe) 50 ml Q15M PRN IV DECREASED GLUCOSE Last administered on 03/28/18at 07:37; Admin Dose 50 ML; Start 03/25/18 at 11:00 Glucagon (Glucagen) 1 mg Q15M PRN IM DECREASED GLUCOSE; Start 03/25/18 at 11:00 Glucose (Glutose) 15 gm Q15M PRN BUCCAL DECREASED GLUCOSE; Start 03/25/18 at 11:00 Metoprolol Succinate (Toprol Xl) 25 mg DAILY PO Last administered on 03/28/18at 08:11; Admin Dose 25 MG; Start 03/26/18 at 09:00 Celecoxib (Celebrex) 100 mg BID PO Last administered on 03/28/18 20:34; Admin Dose 100 MG; Start 03/26/18 at 13:00 Amlodipine Besylate (Norvasc) 5 mg BID PO Last administered on 03/28/18 20:35; Admin Dose 5 MG; Start 03/27/18 at 21:00 MAXI VEGA MD Mar 28, 2018 20:53
[2018-03-29] VITALS (8 sets, daily range): BP systolic 127–154; BP diastolic 57–76; PULSE 48–74; RESP 16–18
[2018-03-29] MEDS: PANTOPRAZOLE (EC) 40 MG TAB PO SCH (06:26)
[2018-03-29] MEDS: INSULIN ASPART [NOVOLOG] 3 ML PEN SC SCH ×2 (07:55→11:33)
[2018-03-29] MEDS: LOSARTAN 50 MG TAB PO SCH (08:18)
[2018-03-29] MEDS: ASPIRIN 81 MG TAB PO SCH (08:18)
[2018-03-29] MEDS: metFORMIN 850 MG TAB PO SCH (08:18)
[2018-03-29] MEDS: CELECOXIB 100 MG CAP PO SCH (08:18)
[2018-03-29] MEDS: METOPROLOL (XL) 25 MG TAB PO SCH (08:19)
[2018-03-29] MEDS: AMLODIPINE 5 MG TAB PO SCH (08:19)
[2018-03-29] MEDS: SERTRALINE 50 MG TAB PO SCH (08:19)
[2018-03-29] MEDS: TIMOLOL 0.5% 5 ML OPH RIGHT EYE SCH (08:20)
[2018-03-29] MEDS ORDERED: ASPI-831 PO (15:31)
[2018-03-29] MEDS ORDERED: ATOR20TA65 PO (15:31)
[2018-03-29] MEDS ORDERED: METO-335 PO (15:31)
--- NOTE | 2018-03-29 15:41 | DS ---
Date/Time of Note Date/Time of Note DATE: 03/29/18 TIME: 15:33 Discharge Summary Admission/Discharge Info Admit Date/Time Mar 28, 2018 at 15:33 Discharge Date/Time Discharge Diagnosis 1. Cervical spinal stenosis, follow up with neurosurgeon outpatient 2. Left sided weakness, improved, unremarkable MRI brain, probably TIA, aspirin and statin 3. HTN, increase norvasc 4. Small meningioma over the anterior left frontal convexity, 9 x 6 mm, follow up with PCP/neurosurgeon 5. Glaucoma, chronic, stable, eye drops Patient Condition: Stable Procedures PROCEDURE: MR Brain with and without contrast. CLINICAL INDICATION: Neurologic deficit, transient ischemic attack TECHNIQUE: An MRI of the brain was performed utilizing the following sequences: Axial T1, axial T2, axial FLAIR, coronal gradient echo, sagittal T1 FLAIR, diffusion weighted imaging, and ADC map. . Axial, sagittal, coronal T1 post contrast images are obtained after administration of 10 ml of intravenous ProHance. COMPARISON: No prior studies are available for comparison. FINDINGS: There is mild diffuse cerebral volume loss. The ventricles are symmetric and normal in configuration. There is a small enhancing extra-axial mass over the left frontal convexity, 9 x 6 mm, likely reflecting a small calcified meningioma. There is minimal mass effect on the adjacent left frontal lobe. There is no abnormal intra-axial or extra-axial fluid collection. There is no intracranial hemorrhage. There is no evidence of acute infarct There are scattered areas of high T2 / FLAIR signal in the periventricular white matter, consistent with mild small vessel ischemic changes. The sella and suprasellar cistern appear within normal limits. The brainstem and posterior fossa are normal in configuration. The orbital soft tissue contents display right optic lens thinning. Paranasal sinuses are clear. IMPRESSION: 1. Mild diffuse cerebral volume loss. Mild small vessel ischemic changes. 2. Small meningioma over the anterior left frontal convexity, 9 x 6 mm. No significant associated mass effect. No midline shift. 3. No acute infarct or intracranial bleed. RPTAT: HBST .Alverto Bernard MD, Date Time Electronically viewed and signed by .Alverto Bernard MD, on 03/25/2018 14:38 .T/ Echocardiogram Report Patient Name: ROSE FLANAGAN Gender: Female Date: 1945 Study Date: 25-Mar-2018 Buffer Inflated Pad: Location: Ref. Physician: RAKEL DA SILVA Quality: Adequate Procedures: Transthoracic echocardiogram with complete 2D, M-Mode, and doppler examination. Indications: Transient Ischemic Attack. 2D/M Mode Doppler Measurement Value Normal Ranges Measurement Value Normal Ranges LVIDd 2D 4.2 3.5 - 5.6 cm AV Peak Patricio 1.6 m/sec LVIDs 2D 3.0 2.1 - 4.1 cm AV Peak PG 10.0 mmHg FS 2D 30.4 % LVOT Peak Patricio 1.1 m/sec LVPWd 2D 1.1 0.6 - 1.1 cm LVOT Peak PG 5.0 mmHg IVSd 2D 1.1 0.6 - 1.1 cm MV E Peak Patricio 0.8 m/sec IVS/LVPW 2D 1.0 MV A Peak Patricio 1.1 m/sec AoR Diam 2D 2.5 2.0 - 3.7 cm MV E/A 0.8 LA/Ao 2D 1 0 - 1 MV Decel Time 204 msec EDV 2D 76.2 cm3 MV E/A 0.8 ESV 2D 25.7 cm3 TV E Peak Patricio 0.5 m/sec LA Dimen 2D 2.7 2.3 - 4.0 cm TR Peak Patricio 2.4 m/sec TR Peak PG 22.0 mmHg Findings Left Ventricle: Normal left ventricular systolic function. Normal left ventricular cavity size. Normal left ventricular wall thickness. Ejection fraction is visually estimated at 55 %. Tissue Doppler/Mitral Doppler indices are consistent with impaired relaxation (Stage I diastolic dysfunction). Right Ventricle: Normal right ventricular size. Normal right ventricular systolic function. Left Atrium: There is moderate enlargement of left atrium. Right Atrium: There is mild enlargement of right atrium. Atrial Septum: Bubble study was performed with and with out valsalva indicating no evidence of intra atrial shunt. Mitral Valve: Mild mitral leaflet calcification. Aortic Valve: Normal appearance of the aortic valve. No aortic regurgitation. Tricuspid Valve: Normal appearance of the tricuspid valve. Estimated peak PA systolic pressure 22 mmHg. There is trace tricuspid regurgitation. Pericardium: Normal pericardium with no significant pericardial effusion. Aorta: Normal aortic root. IVC: The IVC is not well visualized. Conclusions Normal left ventricular systolic function. Normal left ventricular cavity size. Normal left ventricular wall thickness. Ejection fraction is visually estimated at 55 %. Tissue Doppler/Mitral Doppler indices are consistent with impaired relaxation (Stage I diastolic dysfunction). Bubble study was performed with and with out valsalva indicating no evidence of intra atrial shunt. No significant valvular stenosis or regurgitation seen. Estimated peak PA systolic pressure 22 mmHg. The IVC is not well visualized. Electronically Signed By: Aldo Ngo 25-Mar-2018 17:06:58 0800 Patient Name: ROSE FLANAGAN Study Date: 25-Mar-[id number] PROCEDURE: MR Cervical Spine noncontrast. CLINICAL INDICATION: Cervical radiculopathy. TECHNIQUE: Multiplanar multisequence noncontrast MRI of the cervical spine was performed. COMPARISON: There are no similar studies submitted for comparison. FINDINGS: There is a normal cervical lordosis. The vertebral body heights are maintained. There is no destructive osseous lesion. There are Modic type 1 degenerative changes at the C5-C6 level. Otherwise there is no abnormal bone marrow edema. The spinal cord is normal in caliber. The spinal cord is normal in signal. C2-C3 : There is a 1 mm circumferential disc osteophyte complex without spinal canal stenosis. There is mild by facet arthropathy and bilateral uncovertebral hypertrophy causing moderate left without right foraminal stenosis. C3-C4 : There is a 2 mm circumferential disc osteophyte complex without spinal canal stenosis. There is moderate left and moderate facet arthropathy and bilateral uncovertebral hypertrophy causing moderate to severe left without right foraminal stenosis. This likely affects the exiting left C4 nerve root. C4-C5 : There is a 2 mm circumferential disc osteophyte complex with mild to moderate spinal canal stenosis. There is moderate left and moderate facet arthropathy and bilateral uncovertebral hypertrophy causing mild bilateral foraminal stenosis. C5-C6 : There is moderate disc space narrowing. There is trace retrolisthesis with a circumferential disc osteophyte complex mildly indenting the spinal cord with moderate spinal canal stenosis. There is moderate bilateral facet arthropathy and bilateral uncovertebral hypertrophy causing severe left with moderate right foraminal stenosis. This affects the exiting left C6 nerve root. C6-C7 : There is a 2 mm broad-based disc osteophyte complex with mild to moderate spinal canal stenosis. There is moderate by facet arthropathy and bilateral uncovertebral hypertrophy causing mild to moderate right without left foraminal stenosis. C7-T1 : There is a 2 mm circumferential disc osteophyte complex without spinal canal stenosis. There is moderate facet arthropathy and bilateral uncovertebral hypertrophy causing mild to moderate bilateral foraminal stenosis. The paravertebral musculature are within normal limits. There is a 5 mm left thyroid nodule. IMPRESSION: 1. Multilevel bilateral foraminal stenosis affecting the exiting left C4 and C6 nerve roots as detailed above. 2. Multilevel spinal canal stenosis most pronounced at C5-C6 where there is trace retrolisthesis mildly indenting the spinal cord with moderate spinal canal stenosis. 3. No abnormal bone marrow edema. 4. Sub centimeter left thyroid nodule. Further findings as detailed above. RPTAT: HVF .Osmany Atkins MD, MD Date Time Electronically viewed and signed by .Osmany Atkins MD, on 03/27/2018 19:27 .F/ Hospital Course 72-year-old right-handed [place] female admitted on transfer from [facility] emergency room. [place] [facility] [place] [facility] [place] and had lived in [facility] for some years but was living improved for the last 5 years. She moved to [facility] in the last 8 months and has been living here. She is just set up with a new physician in the last 3 months. She reports a 2-year history of left-sided weakness with a loss of coordination and falls x8 times. Reports there is been no acute changes but she presented to the emergency room at [facility] for evaluation. The history they got was of a 2-day history she was transferred over for TIA. Left sided weakness resolved. MRI of brain no infarct but a small meningioma. Echocardiography and carotid US are unremarkable. I will keep her on aspirin and lipitor for TIA. Patient has weakness on both shoulders that she had MRI of cervical spine that shows degenerative cervical stenosis (central and foraminal) with evidence of chronic instability (ie retrolisthesis and Modic changes) without myelopathy or acute radiculopathy. Neurosurgeon Dr. Alejandro recommends she follow up with me as an outpatient for further evaluation. No surgical intervention is indicated at the present time. Home Meds Active Scripts Aspirin (Aspirin) 81 Mg Chew, 81 MG PO DAILY for 30 Days, TAB Prov:CHEYENNE FOSS MD 03/29/18 Metoprolol Succinate* (Toprol XL*) 25 Mg Tab.sr.24h, 25 MG PO DAILY for 30 Days Prov:CHEYENNE FOSS MD 03/29/18 Atorvastatin Calcium (Atorvastatin Calcium) 20 Mg Tablet, 20 MG PO HS for 30 Days, TAB Prov:CHEYENNE FOSS MD 03/29/18 Reported Medications Timolol Maleate* (Timoptic*) 0.5%-5ml Opht, 1 DROP RIGHT EYE BID, #1 EA 03/25/18 Sertraline Hcl* (Sertraline Hcl*) 50 Mg Tablet, 50 MG PO DAILY, #30 TAB 03/25/18 Esomeprazole Mag Trihydrate (Nexium) 40 Mg Capsule.dr, 40 MG PO DAILY, #30 CAP 03/25/18 Losartan Potassium* (Losartan Potassium*) 100 Mg Tablet, 100 MG PO DAILY, TAB 03/25/18 Amlodipine Besylate* (Amlodipine Besylate*) 2.5 Mg Tablet, 5 MG PO DAILY, #30 TAB 03/25/18 Metformin Hcl* (Metformin Hcl*) 850 Mg Tablet, 850 MG PO BID PRN for ELEVATED GLUCOSE, #30 TAB 03/25/18 Follow-up Plan PCP and neurosurgery in one week Primary Care Provider [facility] Pending Labs Laboratory Tests Test 03/28/18 17:25 03/28/18 20:32 03/29/18 08:16 03/29/18 11:31 Bedside 152 107 109 105 Glucose mg/dL (70-220) mg/dL (70-220) mg/dL (70-220) mg/dL (70-220) CHEYENNE FOSS MD Mar 29, 2018 15:41
== END 2018-03-29 16:20 | disposition home or self-care (01) | DRG 69 ==
LOC: TEL 03-25 05:50 → INTOOBSV 03-25 05:50 → OBSVTOIN 03-28 15:33
PROVIDERS: ADMIT Family Medicine; ATTEND Internal Medicine
DX: G45.9 Transient cerebral ischemic attack, unspecified (principal); M48.02 Spinal stenosis, cervical region; I10 Essential (primary) hypertension; D32.9 Benign neoplasm of meninges, unspecified; H40.9 Unspecified glaucoma; R53.1 Weakness
CPT/HCPCS: 70553; 72141; 76705; 80053; 80061; 82962; 83036; 83735; 84443; 85025; 85651; 86592; 86803; 87340; 93306; 93880; 97110; 97116; 97161; 97166; 97530; 99217; G0378; J1815